=== PATIENT | female | born 1940 | race Caucasian/White ===

== ENCOUNTER 2016-08-23 22:14 | Emergency (ER) | payer MEDICARE ==
[2016-08-24 00:15] LABS: HEMOGLOBIN 14.1 gm/dl (12.3-15.3); RED BLOOD COUNT 5.2 M/UL (4.00-5.10); WHITE BLOOD COUNT 13.1 K/UL (4.5-11.0)
[2016-08-24 00:31] LABS: BUN/CREATININE RATIO 19 (0-10)
== END 2016-08-24 02:20 | disposition home or self-care (01) ==
LOC: ER1 22:14
PROVIDERS: Family Medicine
DX: G62.9 Polyneuropathy, unspecified (principal); G51.0 Bell's palsy; R73.9 Hyperglycemia, unspecified; Z88.0 Allergy status to penicillin
CPT/HCPCS: 36415; 70450; 71010; 80053; 82550; 82553; 83874; 84484; 85025; 93005; 99284

== ENCOUNTER → 2016-09-09 | Outpatient (CLI) | payer MEDICARE | LOC: EMI 07:45 | DX: G51.0 Bell's palsy (principal); I67.82 Cerebral ischemia | CPT/HCPCS: 70551 ==